=== PATIENT | female | born 1975 | race Caucasian/White ===

== ENCOUNTER 2017-05-13 14:27 | Emergency (ER) | payer BC, MEDICAID | END 2017-05-13 17:19 | disposition left against medical advice (07) | DX: Z53.21 Procedure and treatment not carried out due to patient leaving prior to being seen by health care provider (principal) ==

== ENCOUNTER 2017-05-14 06:47 | Emergency (ER) | payer BC ==
[2017-05-14] MEDS ORDERED: diphenhydrAMINE INJ 50 MG/ML VIAL IVP STA (07:26)
[2017-05-14] MEDS ORDERED: fentaNYL 100 MCG/2 ML VIAL IVP STA (07:26)
[2017-05-14] MEDS ORDERED: ONDANSETRON 4 MG/2 ML VIAL IVP STA (07:26)
[2017-05-14] MEDS ORDERED: KETOROLAC 30 MG/ML VIAL IVP STA (07:26)
[2017-05-14] MEDS ORDERED: SODIUM CHLORIDE 0.9% 1,000 ML IV ONE (07:26)
[2017-05-14] MEDS ORDERED: KETOROLAC 30 MG/ML VIAL ONE (07:45)
[2017-05-14] MEDS ORDERED: ONDANSETRON 4 MG/2 ML VIAL ONE (07:45)
[2017-05-14] MEDS ORDERED: diphenhydrAMINE INJ 50 MG/ML VIAL ONE (07:45)
[2017-05-14] MEDS ORDERED: fentaNYL 100 MCG/2 ML VIAL ONE (07:46)
[2017-05-14] MEDS ORDERED: HYDROmorphone 1 MG/ML SYRINGE IVP STA (08:56)
[2017-05-14] MEDS ORDERED: HYDROmorphone 1 MG/ML SYRINGE ONE (09:01)
== END 2017-05-14 10:04 | disposition home or self-care (01) ==
DX: M54.9 Dorsalgia, unspecified (principal); R10.32 Left lower quadrant pain; Z87.442 Personal history of urinary calculi
CPT/HCPCS: 74176; 81003; 81025; 96374; 96375; 99283; 99284; J1170